=== PATIENT | female | born 1990 | race Caucasian/White ===

== ENCOUNTER 2019-10-03 02:21 | Emergency (ER) | payer SELFPAY ==
[~2019-10-03] VITALS: Ht 157.5 cm; Wt 46.0 kg
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
[2019-10-03] MEDS ORDERED: PROPOFOL 10 MG/ML (20ML) VIAL. IV ONE (04:00)
[2019-10-03 04:12] VITALS: BP 108/70
[2019-10-03 04:25] VITALS: BP 112/79
== END 2019-10-03 04:33 | disposition home or self-care (01) ==
LOC: ER 02:21
DX: S03.03XA Dislocation of jaw, bilateral, initial encounter (principal); F17.200 Nicotine dependence, unspecified, uncomplicated; F12.90 Cannabis use, unspecified, uncomplicated; X50.9XXA Other and unspecified overexertion or strenuous movements or postures, initial encounter; Y93.89 Activity, other specified; Y92.89 Other specified places as the place of occurrence of the external cause; Y99.8 Other external cause status
CPT/HCPCS: 21480; 70486; 81025; 99285; J2704